=== PATIENT | female | born 1940 | race Caucasian/White ===

== ENCOUNTER 2017-07-29 19:35 | Inpatient (IN) | payer MEDICARE, OTHER ==
[~2017-07-29] VITALS: Ht 162.6 cm; Wt 51.4 kg
[2017-07-29] MEDS ORDERED: SYNTHROID0.1 MG/TAB PO (22:34)
[2017-07-29] MEDS ORDERED: LIPITOR 10MG10 MG PO (22:36)
[2017-07-29] MEDS ORDERED: NAMENDA 10MG TA10 MG PO (22:36)
[2017-07-29 22:48] VITALS: BP 167/86; PULSE 76; TEMP 98.3
[2017-07-30] VITALS (7 sets, daily range): BP systolic 126–158; BP diastolic 62–91; PULSE 70–85; TEMP 98.1–98.3
[2017-07-30 07:09] LABS: CALCIUM 9.2 mg/dL (8.4-10.2); CREATININE, serum 0.71 mg/dL (0.52-1.25); POTASSIUM 3.2 mmol/L (3.4-5.0)
[2017-07-30 09:26] LABS: BASO % 0.3 % (0.0-2.0); EOS % 0.4 % (0-4.0); GRAN # 7.2 (1.4-6.5); GRAN % 74.6 % (42.2-75.2); HEMATOCRIT 37.2 % (37.0-47.0); HEMOGLOBIN 12.3 g/dl (12.5-16.0); LYMPH # 1.4 (1.2-3.4); LYMPH % 14.7 % (20.0-51.0); MEAN CELL VOLUME 94 fl (80.0-100.0); MEAN CORPUSCULAR HEMOGLOBIN 31 pg (27.0-31.0); MEAN CORPUSCULAR HGB CONC 33 g/dl (33.0-37.0); MEAN PLATELET VOLUME 10.9 fl (7.4-10.4); MONO # 0.9 (0.1-0.6); MONO % 9.4 % (1.7-9.3); PLATELET COUNT 176 K/mm3 (130-400); RED BLOOD COUNT 3.97 M/mm3 (4.10-5.30); REDCELL DISTRIBUTION WIDTH-CV 13.2 % (11.5-14.5)
[2017-07-30 09:33] LABS: PROTHROMBIN TIME 11.3 SECONDS (9.7-12.8)
[2017-07-31 02:04] VITALS: BP 141/63; PULSE 85; TEMP 98.2
[2017-07-31 06:10] VITALS: BP 140/96; PULSE 82; TEMP 98.8
[2017-07-31 07:53] LABS: BASO % 0.2 % (0.0-2.0); EOS % 0.1 % (0-4.0); GRAN # 7.2 (1.4-6.5); GRAN % 74.9 % (42.2-75.2); LYMPH # 1.2 (1.2-3.4); LYMPH % 12.1 % (20.0-51.0); MEAN CELL VOLUME 94 fl (80.0-100.0); MEAN CORPUSCULAR HGB CONC 33 g/dl (33.0-37.0); MEAN PLATELET VOLUME 10.7 fl (7.4-10.4); MONO # 1.2 (0.1-0.6); MONO % 12.3 % (1.7-9.3); PLATELET COUNT 128 K/mm3 (130-400); RED BLOOD COUNT 3.33 M/mm3 (4.10-5.30); REDCELL DISTRIBUTION WIDTH-CV 13.2 % (11.5-14.5)
[2017-07-31 08:01] LABS: CALCIUM 8.9 mg/dL (8.4-10.2); CREATININE, serum 0.8 mg/dL (0.52-1.25); POTASSIUM 3.8 mmol/L (3.4-5.0)
[2017-07-31 08:09] LABS: HEMATOCRIT 31.4 % (37.0-47.0); HEMOGLOBIN 10.2 g/dl (12.5-16.0); MEAN CORPUSCULAR HEMOGLOBIN 31 pg (27.0-31.0)
[2017-07-31 10:35] VITALS: BP 153/97; PULSE 77; TEMP 97.9
[2017-07-31 13:48] VITALS: BP 159/93; PULSE 84; TEMP 98.2
[2017-07-31 18:10] VITALS: BP 160/70; PULSE 83; TEMP 98.9
[2017-07-31 22:12] VITALS: BP 120/64; PULSE 78; TEMP 98.9
[2017-08-01 02:45] VITALS: BP 152/71; PULSE 82; TEMP 98.3
[2017-08-01 06:00] VITALS: BP 153/86; PULSE 90; TEMP 98.4
[2017-08-01 06:33] LABS: BASO % 0.2 % (0.0-2.0); EOS % 0.4 % (0-4.0); GRAN # 6.8 (1.4-6.5); LYMPH # 1.7 (1.2-3.4); LYMPH % 17.3 % (20.0-51.0); MEAN CELL VOLUME 94 fl (80.0-100.0); MEAN CORPUSCULAR HGB CONC 33 g/dl (33.0-37.0); MEAN PLATELET VOLUME 10.4 fl (7.4-10.4); MONO # 1.1 (0.1-0.6); MONO % 11.4 % (1.7-9.3); PLATELET COUNT 125 K/mm3 (130-400); RED BLOOD COUNT 3.39 M/mm3 (4.10-5.30); REDCELL DISTRIBUTION WIDTH-CV 13.2 % (11.5-14.5)
[2017-08-01 06:34] LABS: HEMATOCRIT 31.7 % (37.0-47.0); HEMOGLOBIN 10.4 g/dl (12.5-16.0); MEAN CORPUSCULAR HEMOGLOBIN 31 pg (27.0-31.0)
[2017-08-01 06:48] LABS: CREATININE, serum 0.67 mg/dL (0.52-1.25); POTASSIUM 3.9 mmol/L (3.4-5.0)
[2017-08-01 09:37] VITALS: BP 110/61; PULSE 101; TEMP 98.4
[2017-08-01 13:56] VITALS: BP 124/78; PULSE 105; TEMP 98.2
[2017-08-01 17:32] VITALS: BP 124/76; PULSE 99; TEMP 98
[2017-08-01 21:14] VITALS: BP 128/61; PULSE 103; TEMP 98.5
[2017-08-02 05:38] VITALS: BP 140/69; PULSE 88; TEMP 97.5
[2017-08-02 06:46] LABS: BASO % 0.3 % (0.0-2.0); EOS # 0.2 (0.0-0.7); EOS % 1.7 % (0-4.0); GRAN # 6.2 (1.4-6.5); GRAN % 67.3 % (42.2-75.2); HEMATOCRIT 29.7 % (37.0-47.0); HEMOGLOBIN 9.9 g/dl (12.5-16.0); LYMPH # 1.9 (1.2-3.4); LYMPH % 20.4 % (20.0-51.0); MEAN CELL VOLUME 92 fl (80.0-100.0); MEAN CORPUSCULAR HEMOGLOBIN 31 pg (27.0-31.0); MEAN CORPUSCULAR HGB CONC 33 g/dl (33.0-37.0); MEAN PLATELET VOLUME 10.6 fl (7.4-10.4); MONO # 0.9 (0.1-0.6); MONO % 9.5 % (1.7-9.3); PLATELET COUNT 144 K/mm3 (130-400); RED BLOOD COUNT 3.22 M/mm3 (4.10-5.30); REDCELL DISTRIBUTION WIDTH-CV 13.6 % (11.5-14.5)
[2017-08-02 07:03] LABS: CALCIUM 8.7 mg/dL (8.4-10.2); CREATININE, serum 0.69 mg/dL (0.52-1.25); MAGNESIUM 1.8 mg/dL (1.6-2.3); POTASSIUM 3.6 mmol/L (3.4-5.0)
[2017-08-02] MEDS ORDERED: ASPI325T6 PO (09:35)
[2017-08-02] MEDS ORDERED: TYLENOL 325MG325 MG PO (09:36)
[2017-08-02] MEDS ORDERED: MULTI VITAMINS1 TAB PO (09:37)
[2017-08-02] MEDS ORDERED: NORCO 325 MG-51 TAB PO (09:37)
[2017-08-02 10:00] VITALS: BP 115/62; PULSE 85; TEMP 98.6
[2017-08-02 13:00] VITALS: BP 109/64; PULSE 105; TEMP 97.5
[2017-08-02 17:54] VITALS: BP 128/58; PULSE 97; TEMP 97.9
[2017-08-02 21:19] VITALS: BP 128/60; PULSE 96; TEMP 98.5
[2017-08-03 05:37] VITALS: BP 109/72; PULSE 93; TEMP 97.5
[2017-08-03 06:55] LABS: BASO % 0.4 % (0.0-2.0); EOS # 0.2 (0.0-0.7); EOS % 2.2 % (0-4.0); GRAN # 4.3 (1.4-6.5); GRAN % 59.4 % (42.2-75.2); LYMPH # 1.9 (1.2-3.4); LYMPH % 26.5 % (20.0-51.0); MEAN CELL VOLUME 94 fl (80.0-100.0); MEAN CORPUSCULAR HGB CONC 33 g/dl (33.0-37.0); MEAN PLATELET VOLUME 10.5 fl (7.4-10.4); MONO # 0.8 (0.1-0.6); MONO % 10.8 % (1.7-9.3); PLATELET COUNT 175 K/mm3 (130-400); RED BLOOD COUNT 3.14 M/mm3 (4.10-5.30); REDCELL DISTRIBUTION WIDTH-CV 13.5 % (11.5-14.5)
[2017-08-03 07:16] LABS: HEMATOCRIT 29.4 % (37.0-47.0); HEMOGLOBIN 9.6 g/dl (12.5-16.0); MEAN CORPUSCULAR HEMOGLOBIN 31 pg (27.0-31.0)
[2017-08-03 07:17] LABS: CALCIUM 9.4 mg/dL (8.4-10.2); CREATININE, serum 0.69 mg/dL (0.52-1.25); POTASSIUM 3.9 mmol/L (3.4-5.0)
[2017-08-03 09:44] VITALS: BP 113/65; PULSE 102; TEMP 98
[2017-08-03 11:40] VITALS: BP 113/65; PULSE 102; TEMP 98
[2017-08-03 14:39] VITALS: BP 134/63; PULSE 104; TEMP 98.6
== END 2017-08-03 15:15 | DRG 483 ==
LOC: MEDICAL 19:35 → SURG 21:18
PROVIDERS: Internal Medicine; Orthopaedic Surgery; Physician Assistant
PROC: 0RRJ0J6 Replacement of Right Shoulder Joint with Synthetic Substitute, Humeral Surface, Open Approach (ICD-10-PCS; principal; 2017-07-30 14:00)
DX: S42.241A 4-part fracture of surgical neck of right humerus, initial encounter for closed fracture (principal); E87.1 Hypo-osmolality and hyponatremia; E44.0 Moderate protein-calorie malnutrition; Z68.1 Body mass index [BMI] 19.9 or less, adult; W18.30XA Fall on same level, unspecified, initial encounter; Z23 Encounter for immunization; F01.50 Vascular dementia, unspecified severity, without behavioral disturbance, psychotic disturbance, mood disturbance, and anxiety; S92.352A Displaced fracture of fifth metatarsal bone, left foot, initial encounter for closed fracture; D50.0 Iron deficiency anemia secondary to blood loss (chronic); E87.6 Hypokalemia
CPT/HCPCS: 99222-AI; 99231-AI; 99232-AI; 99239; C1776; J0690; J1100; J2370; J2405; J2704; J3010; J7120; J7121

== ENCOUNTER 2021-04-13 07:36 | Inpatient (IN) | payer MEDICARE, OTHER ==
[~2021-04-13] VITALS: Ht 162.6 cm; Wt 46.5 kg
[2021-04-13] VITALS (9 sets, daily range): BP systolic 136–163; BP diastolic 71–110; PULSE 89–155; TEMP 97.8–99.4
[~2021-04-13 07:36] MED LIST: ASPI325T6 PO; LIPITOR 10MG10 MG PO; MULTI VITAMINS1 TAB PO; NAMENDA 10MG TA10 MG PO; NORCO 325 MG-51 TAB PO; SYNTHROID0.1 MG/TAB PO; TYLENOL 325MG325 MG PO
[2021-04-13 09:20] LABS: ALBUMIN 4.1 gm/dL (3.5-5.0); BILIRUBIN,TOTAL 0.5 mg/dL (0.0-1.0); CREATININE, serum 0.57 (0.52-1.25); POTASSIUM 3.6 mmol/L (3.4-5.0); TOTAL PROTEIN 6.8 gm/dL (6.4-8.2)
[2021-04-13 09:26] LABS: BASO # 0.1 (0.0-0.2); BASO % 0.3 % (0.0-2.0); EOS % 0.1 % (0-4.0); GRAN % 89.2 % (42.2-75.2); HEMATOCRIT 37.6 % (37.0-47.0); HEMOGLOBIN 12.6 g/dl (12.5-16.0); LYMPH # 0.8 (1.2-3.4); LYMPH % 4.7 % (20.0-51.0); MEAN CELL VOLUME 91 fl (80.0-100.0); MEAN CORPUSCULAR HEMOGLOBIN 30 pg (27.0-31.0); MEAN CORPUSCULAR HGB CONC 34 g/dl (33.0-37.0); MEAN PLATELET VOLUME 10.4 fl (7.4-10.4); MONO # 0.8 (0.1-0.6); PLATELET COUNT 206 K/mm3 (130-400); RED BLOOD COUNT 4.15 M/mm3 (4.10-5.30); REDCELL DISTRIBUTION WIDTH-CV 13.2 % (11.5-14.5)
--- NOTE | 2021-04-13 10:33 | NUR ---
Report from Juanita in ER. I informed Dr. Estevez made aware of ortho consult.
[2021-04-13 11:20] LABS: INR 1.1 (0.8-3.0)
[2021-04-13] MEDS ORDERED: MELATONIN5 M1 PO (11:52)
[2021-04-13] MEDS ORDERED: TIROSINT88 MC1 PO (11:53)
[2021-04-13] MEDS ORDERED: GOOD NEIGH1200 MG/15 PO (11:58)
[2021-04-13] MEDS ORDERED: MOTRIN 200200 MG/TAB PO (11:59)
[2021-04-13] MEDS ORDERED: NORVASC2.5 MG PO (11:59)
[2021-04-13] MEDS ORDERED: HCTZ12.5TAB PO (12:00)
--- NOTE | 2021-04-13 12:00 | NUR ---
Med rec up to date with paperwork from [facility] & verified with patient daughter.
[2021-04-13 13:53] LABS: COLLECTION METHOD CATHETER
[2021-04-13 14:14] LABS: MUCOUS Present /lpf; PH 6 (5-8); URINE APPEARANCE Cloudy; URINE BACTERIA Many /hpf; URINE BILIRUBIN Negative (NEGATIVE); URINE BLOOD Negative (NEGATIVE); URINE COLOR Yellow; URINE GLUCOSE Negative (NEGATIVE); URINE KETONE Trace (NEGATIVE); URINE LEUKOCYTE ESTERASE 3+ (NEGATIVE); URINE NITRATE Positive (NEGATIVE); URINE PROTEIN(semi-quant) Negative (NEGATIVE); URINE RBC 20-50 /hpf; URINE UROBILINOGEN >=4.0 mg/dL (NEGATIVE)
--- NOTE | 2021-04-13 15:30 | NUR ---
Patient resting in bed. CT scan complated. Antibioitcs per orders
--- NOTE | 2021-04-13 15:32 | NUR ---
PT UNABLE TO FOLLOW INSTRUCTIONS DUE TO SEVERE DEMENTIA
--- NOTE | 2021-04-13 17:26 | NUR ---
Patient sitting up and assisting with dinner tray. Eating dinner without troubles. Patient daughter reports she does better with soft diet due to poor oral health.
--- NOTE | 2021-04-13 18:30 | NUR ---
Patient resting, Will report to nightnurse
--- NOTE | 2021-04-13 19:52 | NUR ---
Bedside shift report received, assumed care for meat curer. Assessment complete. Baseline-demented. Repositioned in bed with pillow support. Seems to wiggle self into a position. CHAVA/SCD to RLL. Fresh ice pack applied. Calles cath with clear yellow urine. NS@75ml/hr to left wrist 22g-infusing without difficulty. Doesnt appear to be in any pain unless repositioning. Bed alarm on/call light in [facility]. Will monitor.
--- NOTE | 2021-04-13 20:30 | NUR ---
Notified by Water Jet Loom Fixer of increased heart rate to the 140s. Notified Hospitalist-SANDRA Melo. New orders received for EKG. Notified signal operator technical of STAT order. Noted to also be hypertensive-160/110. Temp 99.9 axillary. SANDRA Melo at bedside. Bedside glucose completed-150.
--- NOTE | 2021-04-13 20:42 | NUR ---
Current vitals-BP 160/110 pulse 155. Cardizem 10mg bolus given slow IV push.
[2021-04-14] VITALS (14 sets, daily range): BP systolic 134–178; BP diastolic 67–88; PULSE 79–138; TEMP 97.8–99.3
--- NOTE | 2021-04-14 02:05 | NUR ---
Call from mental telepathist of increase in heart rate up to high 130s. Vitals taken-blood pressure 142/86, Pulse 138, RR 18 Temp 99.0 axillary. SANDRA Melo and RT at bedside for STAT EKG. New orders received for cardizem bolus. Gave 0.5ml/2.5mg and heart rate started to drop into the mid 90s. Verbal order received from SANDRA Melo to hold cardizem dose for now and monitor vitals.
--- NOTE | 2021-04-14 05:26 | NUR ---
Heart rate has remained WNL since last episode-ranging from 74-92. Repositioned in bed several times with pillow support. Tends to ball up in position. Did not received any pain meds this shift. Attempted to apply ice pack but patient pushed on floor. SCD/CHAVA to right lower ext. NS@125mls/hr to left wrist IV. Call light in reach. Bed alarm on. Will monitor.
[2021-04-14 06:32] LABS: CALCIUM 8.5 mg/dL (8.4-10.2); CREATININE, serum 0.55 (0.52-1.25); POTASSIUM 3.7 mmol/L (3.4-5.0)
[2021-04-14 06:34] LABS: BASO % 0.3 % (0.0-2.0); EOS % 0.2 % (0-4.0); GRAN # 9.1 (1.4-6.5); GRAN % 79.1 % (42.2-75.2); HEMOGLOBIN 11.9 g/dl (12.5-16.0); LYMPH # 1.1 (1.2-3.4); LYMPH % 9.8 % (20.0-51.0); MEAN CELL VOLUME 92 fl (80.0-100.0); MEAN CORPUSCULAR HEMOGLOBIN 30 pg (27.0-31.0); MEAN CORPUSCULAR HGB CONC 32 g/dl (33.0-37.0); MEAN PLATELET VOLUME 10.8 fl (7.4-10.4); MONO # 1.1 (0.1-0.6); MONO % 9.7 % (1.7-9.3); PLATELET COUNT 184 K/mm3 (130-400); REDCELL DISTRIBUTION WIDTH-CV 13.2 % (11.5-14.5)
[2021-04-14 06:35] LABS: HEMATOCRIT 36.7 % (37.0-47.0)
--- NOTE | 2021-04-14 06:40 | NUR ---
appears to be sleeping, bedside shift report received from JONI Fajardo
--- NOTE | 2021-04-14 07:43 | NUR ---
awakened and full assessment completed, poatient does not follow commands and does not speak, only moans at times when moving her a bit in bed, Joshua Arellano here and notified of cardiology consult,
--- NOTE | 2021-04-14 08:00 | NUR ---
vascular lab in to complete echo
--- NOTE | 2021-04-14 09:16 | NUR ---
DR Pedersen was in to see patient, given metoprolo po with sips of water and some pudding and she did finally swallow this, Dr Red and care team in to see patient now, she still does not answer questions or converse, chest xray was also completed
--- NOTE | 2021-04-14 10:00 | NUR ---
The patient has a history of dementia. CAYETANO met with the patient and her daughter, Griselda Dennis (ph#[phone]), to discuss discharge plan. The patient resides at [facility]. Her PCP is Dr. Sussy Jackson. The patient does not have a DPOA-HC in EMR, but Griselda reports that the patient does have one completed and that it designates her. She states that [facility] should have a copy of the DPOA-HC. The patient has a hip fracture. CAYETANO discussed post-acute rehab upon discharge. Griselda is in agreement to rehab and chose 1)[facility] 2) [facility]. CAYETANO contacted and faxed a referral to both facilities. Awaiting screens. CAYETANO contacted and faxed updates to [facility]. CAYETANO requested a copy of the patient's DPOA-HC. The medical office receptionist assistant reports that they will fax a copy of the DPOA-HC to the surgical unit. *Discharge plan: SNF*
--- NOTE | 2021-04-14 10:11 | NUR ---
daughter here and consent signed for surgery, patient remains non verbal
--- NOTE | 2021-04-14 10:40 | NUR ---
to surgery per bed, spoke with PHYLLIS Chambers and reported possible SVT during the night or A flutter per Dr Pedersen
--- NOTE | 2021-04-14 12:11 | NUR ---
remains in surgery
--- NOTE | 2021-04-14 13:15 | NUR ---
returned from PACU per bed, alert but remains non vocal, IV infusing and placed on pump at 100ml/hr, On room air and O2 sats 96%, SCDS on left leg and CHAVA hose on bilaterally, delgado cath patent draining clear yellow urine, heart rate strong and regular, lungs CTA, abdomen soft and non distended, bowel sounds hypoactive at this time, peripheral pulses present in 4 extremities, daughter at bedside
--- NOTE | 2021-04-14 13:49 | NUR ---
resting with eyes closed at this time, daughter at bedside
--- NOTE | 2021-04-14 14:30 | NUR ---
continues to sleep between checks, daughter has left for the day
--- NOTE | 2021-04-14 14:46 | NUR ---
CAYETANO received the patient's DPOA-HC from [facility]. SW placed the document in the patient's chart. The patient's DPOA-HC is her daughter, Griselda.
--- NOTE | 2021-04-14 16:13 | NUR ---
SANDRA Wray notified of BP trending up, BRIDGE IRONWORKER was in and asissted her with having pudding which she took and tolerated well
--- NOTE | 2021-04-14 17:00 | NUR ---
arouses easily and tries to talk and answer questions, does not moan or grimace or move about in bed
--- NOTE | 2021-04-14 18:49 | NUR ---
bedside shift report given to JONI Nielsen
--- NOTE | 2021-04-14 19:45 | NUR ---
Bedside shift report received, assumed are for shift commander. Assessment complete. Is not alert or oriented-hx of severe dementia. Repositioned in bed with pillow support. Ice pack applied to left hip. Dressings x3 to left hip-gauze/tegaderm-CDI. SCD/CHAVA bilat. HS meds given crushed in pudding. Tolerated well. Call light in reach. Will monitor.
--- NOTE | 2021-04-14 23:43 | NUR ---
AFTER ASSESSING PATIENT, THE PATIENT DOES NOT SEEM TO UNDERSTAND DIRECTIONS AND FOLLOW COMMANDS ENOUGH TO PERFORM INCENTIVE SPIROMETRY.
[2021-04-15] VITALS (8 sets, daily range): BP systolic 107–152; BP diastolic 55–104; PULSE 71–88; TEMP 97.7–99
--- NOTE | 2021-04-15 00:25 | NUR ---
Repositioned in bed with pillow support. Fresh ice pack applied. No s/s of pain/discomfort noted.
[2021-04-15 06:48] LABS: HEMATOCRIT 30.2 % (37.0-47.0)
[2021-04-15 06:53] LABS: INR 1.1 (0.8-3.0); PROTHROMBIN TIME 12.7 SECONDS (9.7-12.8)
[2021-04-15 07:03] LABS: CREATININE, serum 0.5 (0.52-1.25); POTASSIUM 3.8 mmol/L (3.4-5.0)
--- NOTE | 2021-04-15 08:00 | NUR ---
PATIENT IS CONFUSED AND HAS A HX OF DEMENTIA. PATIENT IS FROM [facility] WHERE SHE FELL. LEFT HIP INCISIONS X3 ARE CD&I WITH GAUZE & TEGADERM. TEDS & SCD'S TO BLE. POSITIVE PEDAL PULSES TO BLE. BILL TO DD. IV FLUIDS INFUSING VIA PUMP INTO LEFT FORARM IV. NO C/O N/V. AM MEDS GIVEN, CRUSHED IN PUDDING. BREAKFAST TRAY ORDERED. HEAD TO TOE ASSESSMENT COMPLETE, SEE CHARTING. VSS WITH HR IS NOW SR IN THE 70'S ON TELE. DNR STATUS. PATIENT RESTING UP IN BED WITH CALL LIGHT IN REACH. BED ALARM ON.
--- NOTE | 2021-04-15 14:06 | NUR ---
SW faxed updates to [facility] and [facility].
--- NOTE | 2021-04-15 20:00 | NUR ---
Report received, assumed care for night warehouse selector. Assessment complete. Is awake in room more this shift. Very demented-does not answer questions at all. VS stable. Jacquie reading BP high at 1930-rechecked manually by this nurse-138/88. No s/s of pain noted. Tolerating diet. Dressing x3 to left hip-gauze/tegaderm-CDI. SCDs/TEDs bilat. Repositioned in bed with pillow support. Call light in reach/bed alarm on. Will monitor.
[2021-04-16] VITALS (7 sets, daily range): BP systolic 112–139; BP diastolic 56–87; PULSE 75–97; TEMP 97.5–98.7
[2021-04-16 06:55] LABS: BASO % 0.3 % (0.0-2.0); EOS # 0.1 (0.0-0.7); EOS % 1.2 % (0-4.0); GRAN # 6.4 (1.4-6.5); GRAN % 71.4 % (42.2-75.2); LYMPH # 1.4 (1.2-3.4); LYMPH % 15.7 % (20.0-51.0); MEAN CELL VOLUME 94 fl (80.0-100.0); MEAN CORPUSCULAR HGB CONC 32 g/dl (33.0-37.0); MEAN PLATELET VOLUME 11.2 fl (7.4-10.4); MONO # 0.9 (0.1-0.6); MONO % 10.5 % (1.7-9.3); PLATELET COUNT 148 K/mm3 (130-400); RED BLOOD COUNT 3.15 M/mm3 (4.10-5.30); REDCELL DISTRIBUTION WIDTH-CV 13.2 % (11.5-14.5)
--- NOTE | 2021-04-16 07:00 | NUR ---
Report received from JONI Fajardo. PT in bed resting with eyes open, does not follow me around the room with eyes, bed alarm on, will conitnue to monitor.
[2021-04-16 07:03] LABS: HEMATOCRIT 29.6 % (37.0-47.0); HEMOGLOBIN 9.6 g/dl (12.5-16.0); MEAN CORPUSCULAR HEMOGLOBIN 30 pg (27.0-31.0)
[2021-04-16 07:11] LABS: CALCIUM 8.5 mg/dL (8.4-10.2); CREATININE, serum 0.57 (0.52-1.25); POTASSIUM 3.8 mmol/L (3.4-5.0); PROTHROMBIN TIME 11.3 SECONDS (9.7-12.8)
--- NOTE | 2021-04-16 10:28 | NUR ---
Assessment charted. Pt in chair at side of bed, did not want assistance of RIB CUTTER for breakfast but pt did feed self, did not appear to have any trouble but did have a few items of food in the bed. Resting quietly between disturbances, taking PO well. Calles catheter bag changed d/t leaking but hospitalist doesn't want to remove today as pt is not walking. L hip dressing CDI with gauze in all three areas. Not able ot answer any orientation questions. Will continue to monitor.
--- NOTE | 2021-04-16 13:28 | NUR ---
SW staffed with the PA. The patient will likely be able to discharge tomorrow or Wednesday. SW notified and faxed updates to [facility] and [facility] and asked if they are able to accept or not. Awaiting responses. *Discharge plan: SNF*
--- NOTE | 2021-04-16 14:13 | NUR ---
Jazlyn, at [facility], reports that they are unable to accept the patient. Harish, at [facility], reports that they need to review the updates, but that he thinks they can take. Awaiting screen.
--- NOTE | 2021-04-16 16:47 | NUR ---
Call on telemetry and noticed pt has increased heart rate, called hospitalist and they call cardiology. Cardiology here to see pt and wanted to give IV adenosine on floor, called nanny/household manager and ICU charge to come assist. Moise had to go down for a procedure but will return to floor shortly and we will be ready to provide adenosine.
--- NOTE | 2021-04-16 17:59 | NUR ---
Dr. Phipps returned to floor at approximately 1720, provided 6 mg adenosine with assistance of ICU charge Pearl, pt did not slow her heart rate, increaed to 12 mg adenosine per orders from Moise. Order received for amio bolus, called pharmacy to provide. Pt tolerated procedures well, f/u EKG completed. Pt resting in bed with daughter at bedside to assist with supper tonight. INT starteed to LFA for procedure and bolus. Denies needs, will continue to monitor.
--- NOTE | 2021-04-16 21:30 | NUR ---
PATIENT IS CALM IN THE ROOM.PATIENT IS DISORIENTED NOT TALKING MUCH.TOOK MEDS IN PUDDING.SAFETY MEASURES IN PLACE.NO OTHER NEEDS AT THIS TIME.
[2021-04-17 03:27] VITALS: BP 148/76; PULSE 82; TEMP 97.8
--- NOTE | 2021-04-17 04:59 | NUR ---
PATIENT SLEPT THE WHOLE NIGHT.PATIENT IS NON VERBAL.DENIES PAIN.SAFETY MEASRES IN PLACE.NO OTHER NEEDS AT THIS TIME.
[2021-04-17 06:56] LABS: BASO % 0.3 % (0.0-2.0); EOS # 0.1 (0.0-0.7); EOS % 1.2 % (0-4.0); HEMOGLOBIN 10.4 g/dl (12.5-16.0); LYMPH # 1.9 (1.2-3.4); LYMPH % 16.8 % (20.0-51.0); MEAN CELL VOLUME 93 fl (80.0-100.0); MEAN CORPUSCULAR HEMOGLOBIN 30 pg (27.0-31.0); MEAN CORPUSCULAR HGB CONC 33 g/dl (33.0-37.0); MEAN PLATELET VOLUME 11.2 fl (7.4-10.4); MONO # 1.1 (0.1-0.6); MONO % 9.5 % (1.7-9.3); PLATELET COUNT 197 K/mm3 (130-400); RED BLOOD COUNT 3.42 M/mm3 (4.10-5.30); REDCELL DISTRIBUTION WIDTH-CV 13.3 % (11.5-14.5)
[2021-04-17 07:01] LABS: HEMATOCRIT 31.7 % (37.0-47.0)
[2021-04-17 07:13] LABS: CALCIUM 9.2 mg/dL (8.4-10.2); CREATININE, serum 0.58 (0.52-1.25); POTASSIUM 3.9 mmol/L (3.4-5.0)
[2021-04-17 07:20] LABS: PROTHROMBIN TIME 10.9 SECONDS (9.7-12.8)
[2021-04-17 07:28] VITALS: BP 131/72; PULSE 81; TEMP 98.1
--- NOTE | 2021-04-17 09:05 | NUR ---
Pt assessment complete. Pt is sitting up in bed upon entry, she is alert but does not respond to any questions. Pt took pills crushed in applesauce without issues. No coughing/drooling present. Pt repositioned in bed as she was sitting with her left lower leg out to the side. CHAVA hose on bilaterally. Dressing CDI to L hip. Marli DD. Breakfast in place. Call light within reach.
--- NOTE | 2021-04-17 09:23 | NUR ---
Harish, at [facility], reports that they are able to accept the patient for a skilled stay. SW to inform the patient's daughter.
--- NOTE | 2021-04-17 10:55 | NUR ---
CAYETANO staffed with the PA. The patient is to tentatively d/c tomorrow. CAYETANO notified and faxed updates to Harish at [facility]. CAYETANO contacted and updated the patient's daughter, Griselda. Griselda is in agreement to the plan. CAYETANO read the IM form outloud to Griselda over the phone. Griselda verbalized understanding and gave SW approval to sign the form on his behalf. SW to continue to follow. *Discharge plan: [facility]*
[2021-04-17 11:18] VITALS: BP 113/66; PULSE 77; TEMP 98.2
--- NOTE | 2021-04-17 13:30 | NUR ---
Pt very drowsy after administration of pain medication. Will open her eyes briefly when spoken to but falls asleep quickly. Marli HASSAN.
[2021-04-17 15:48] VITALS: BP 95/81; PULSE 78; TEMP 97.5
--- NOTE | 2021-04-17 16:53 | NUR ---
Calles catheter removed at this time. Brief placed on patient. Pt repositioned in bed. Daughter at bedside. Pt refusing to drink ensure at this time.
--- NOTE | 2021-04-17 18:21 | NUR ---
Pt drowsy after administration of pain medication. She did wake up to eat a few bites for dinner, but does not eat much. LLE, very stiff and patient attempts to position herself with her knee across midline and ankle out to the lateral side. Repositioned frequently with pillows to follow hip precautions. POC discussed with patient's daughter who verbalizes understanding. Bed alarm in place.
[2021-04-17 19:33] VITALS: BP 112/71; PULSE 81; TEMP 97.8
[2021-04-18 01:18] VITALS: BP 120/59; PULSE 67; TEMP 98.4
[2021-04-18 03:16] VITALS: BP 109/64; PULSE 65; TEMP 97.4
--- NOTE | 2021-04-18 04:21 | NUR ---
Patient awake, alert, confused, ice on L hip surgical site, positioned with pillows to offload pressure, encouraged po fluids overnight, incontinent of urine, telemetry running SR
[2021-04-18 07:00] LABS: BASO % 0.5 % (0.0-2.0); EOS # 0.2 (0.0-0.7); EOS % 2.4 % (0-4.0); GRAN # 6.3 (1.4-6.5); GRAN % 72.3 % (42.2-75.2); LYMPH # 1.3 (1.2-3.4); LYMPH % 15.5 % (20.0-51.0); MEAN CELL VOLUME 95 fl (80.0-100.0); MEAN CORPUSCULAR HGB CONC 32 g/dl (33.0-37.0); MEAN PLATELET VOLUME 10.7 fl (7.4-10.4); MONO # 0.7 (0.1-0.6); PLATELET COUNT 213 K/mm3 (130-400); REDCELL DISTRIBUTION WIDTH-CV 13.6 % (11.5-14.5)
[2021-04-18 07:03] LABS: HEMATOCRIT 28.5 % (37.0-47.0); HEMOGLOBIN 9.2 g/dl (12.5-16.0); MEAN CORPUSCULAR HEMOGLOBIN 31 pg (27.0-31.0)
[2021-04-18 07:22] LABS: PROTHROMBIN TIME 11.2 SECONDS (9.7-12.8)
[2021-04-18 07:53] LABS: CALCIUM 9.3 mg/dL (8.4-10.2); CREATININE, serum 0.69 mg/dL (0.57-1.11); MAGNESIUM 1.8 mg/dL (1.6-2.6); POTASSIUM 3.9 mmol/L (3.5-4.5)
[2021-04-18 08:34] VITALS: BP 116/84; PULSE 80; TEMP 98.7
[2021-04-18] MEDS ORDERED: TOPROL XL 25MG25 MG PO (08:52)
[2021-04-18] MEDS ORDERED: MIRALAX PA17 GM/Dose PO (08:53)
[2021-04-18] MEDS ORDERED: OMNICEF 300MG300 MG PO (08:54)
[2021-04-18] MEDS ORDERED: CORDARONE200 MG/TAB PO (08:55)
[2021-04-18] MEDS ORDERED: ASPI325T6 PO (08:56)
[2021-04-18] MEDS ORDERED: ROXICODONE 55 MG/TAB PO (08:57)
[2021-04-18] MEDS ORDERED: TYLENOL 500MG500 MG PO (08:57)
[2021-04-18] MEDS ORDERED: OSCAL 500 TAB500 MG PO (08:57)
[2021-04-18] MEDS ORDERED: DUO-KAPS1 CAP PO (08:58)
[2021-04-18] MEDS ORDERED: VITAMIN C500 MG PO (08:58)
[2021-04-18] MEDS ORDERED: DULCOLAX S10 MG/SUPP RC (08:58)
[2021-04-18] MEDS ORDERED: MELATONIN5 M1 PO (08:58)
[2021-04-18] MEDS ORDERED: TIROSINT88 MC1 PO (08:58)
--- NOTE | 2021-04-18 09:14 | NUR ---
The patient is to discharge today, 04/18, to [facility] for a skilled stay. Transportation was scheduled around [id number], via [facility]. CAYETANO informed the patient's RN and her daughter, Griselda, of the time. They were both agreeable to the time. No additional needs at this time. CAYETANO updated Sobeida at [facility].
--- NOTE | 2021-04-18 09:14 | NUR ---
Pt assessment complete. Pt is sitting up in bed upon entry, she is alert but not oriented. She is more awake and speaks uncomprehensible speech at times. Does not appear to be in any pain or distress. Pt incontinent of urine, pericare and repositioning completed. Set up for breakfast at this time. Bed alarm in place.
[2021-04-18 09:56] VITALS: BP 116/84; PULSE 80; TEMP 98.7
--- NOTE | 2021-04-18 11:35 | NUR ---
Pt discharged from surgical unit at this time. IV to LFA dc'd catheter tip intact. Report given to RN at [facility].
== END 2021-04-18 11:36 | DRG 481 ==
LOC: COL.ER 07:36 → SURG 08:55 → MEDICAL 04-14 09:52 → SURG 04-18 11:36
PROVIDERS: Emergency Medicine; Orthopaedic Surgery; Physician Assistant; ADMIT Student in an Organized Health Care Education/Training Program
PROC: 0QS704Z Reposition Left Upper Femur with Internal Fixation Device, Open Approach (ICD-10-PCS; principal; 2021-04-14 11:00)
DX: S72.142A Displaced intertrochanteric fracture of left femur, initial encounter for closed fracture (principal); I48.92 Unspecified atrial flutter; N39.0 Urinary tract infection, site not specified; I73.00 Raynaud's syndrome without gangrene; E03.9 Hypothyroidism, unspecified; I10 Essential (primary) hypertension; F03.90 Unspecified dementia, unspecified severity, without behavioral disturbance, psychotic disturbance, mood disturbance, and anxiety; B96.20 Unspecified Escherichia coli [E. coli] as the cause of diseases classified elsewhere; Z20.822 Contact with and (suspected) exposure to COVID-19; F41.9 Anxiety disorder, unspecified; W19.XXXA Unspecified fall, initial encounter; Y93.9 Activity, unspecified
CPT/HCPCS: 99222-AI; 99232-AI; 99233-AI; 99239; A4314; C1713; C1769; J0153; J0282; J0696; J2250; J3010; J3480; J7030; J7060

== ENCOUNTER → 2021-05-30 | Outpatient (CLI) | payer MEDICARE, OTHER ==
[~2021-05-30] MED LIST changes: +CORDARONE200 MG/TAB PO; +DULCOLAX S10 MG/SUPP RC; +DUO-KAPS1 CAP PO; +GOOD NEIGH1200 MG/15 PO; +HCTZ12.5TAB PO; +MELATONIN5 M1 PO; +MIRALAX PA17 GM/Dose PO; +MOTRIN 200200 MG/TAB PO; +NORVASC2.5 MG PO; +OMNICEF 300MG300 MG PO; +OSCAL 500 TAB500 MG PO; +ROXICODONE 55 MG/TAB PO; +TIROSINT88 MC1 PO; +TOPROL XL 25MG25 MG PO; +TYLENOL 500MG500 MG PO; +VITAMIN C500 MG PO
== END ==
LOC: ZLAB.STJ 15:12
DX: E03.9 Hypothyroidism, unspecified (principal)

== ENCOUNTER → 2021-06-09 | Outpatient (CLI) | payer MEDICARE, OTHER | LOC: ZLAB.STJ 14:53 | DX: E03.9 Hypothyroidism, unspecified (principal) ==

== ENCOUNTER → 2021-10-07 | Outpatient (CLI) | payer MEDICARE, OTHER | LOC: ZLAB.STJ 15:19 | DX: I10 Essential (primary) hypertension (principal); E03.9 Hypothyroidism, unspecified ==

== ENCOUNTER → 2021-10-21 | Outpatient (CLI) | payer MEDICARE, OTHER ==
[2021-10-21 19:06] LABS: ALBUMIN 4.1 gm/dL (3.4-4.8); BILIRUBIN,TOTAL 0.5 mg/dL (0.2-1.2); CALCIUM 9.5 mg/dL (8.4-10.2); CREATININE, serum 0.73 mg/dL (0.57-1.11); MAGNESIUM 2.1 mg/dL (1.6-2.6); POTASSIUM 3.9 mmol/L (3.5-4.5); THYROID STIMULATING HORMONE 1.199 uIU/mL (0.350-4.940); TOTAL PROTEIN 7.1 gm/dL (6.2-8.1)
== END ==
LOC: ZLAB.STJ 15:41
PROVIDERS: Internal Medicine
DX: E03.9 Hypothyroidism, unspecified (principal); M62.81 Muscle weakness (generalized); I10 Essential (primary) hypertension

== ENCOUNTER 2022-01-19 11:54 | Emergency (ER) | payer MEDICARE, OTHER ==
[~2022-01-19] VITALS: Ht 167.6 cm; Wt 45.5 kg
[2022-01-19 11:56] VITALS: TEMP 97.5
[2022-01-19 13:00] VITALS: BP 123/70; PULSE 53
== END 2022-01-19 13:19 | disposition home or self-care (01) ==
LOC: COL.ER 11:54
DX: M25.511 Pain in right shoulder (principal); Z79.891 Long term (current) use of opiate analgesic; Z98.890 Other specified postprocedural states